=== PATIENT | male | born 1950 | race Caucasian/White ===

== ENCOUNTER 2023-03-19 10:05 | Outpatient (RCR) | payer OTHER, SELFPAY | END 2023-03-19 23:59 | disposition home or self-care (01) | LOC: RPT 10:05 | PROVIDERS: ATTENDING PHYSICIAN Physician Assistant Surgical; PRIMARYCARE PHYSICIAN Family Medicine | DX: M76.31 Iliotibial band syndrome, right leg (principal); S86.892D Other injury of other muscle(s) and tendon(s) at lower leg level, left leg, subsequent encounter; S86.891D Other injury of other muscle(s) and tendon(s) at lower leg level, right leg, subsequent encounter; Z73.6 Limitation of activities due to disability | CPT/HCPCS: 97110 ==

== ENCOUNTER 2023-05-15 10:49 | Outpatient (RCR) | payer OTHER, SELFPAY | END 2023-05-15 23:59 | disposition home or self-care (01) | LOC: RPT 10:49 | PROVIDERS: ATTENDING PHYSICIAN Physician Assistant Surgical; PRIMARYCARE PHYSICIAN Family Medicine | DX: M76.31 Iliotibial band syndrome, right leg (principal); S86.892D Other injury of other muscle(s) and tendon(s) at lower leg level, left leg, subsequent encounter; S86.891D Other injury of other muscle(s) and tendon(s) at lower leg level, right leg, subsequent encounter; Z73.6 Limitation of activities due to disability; X58.XXXD Exposure to other specified factors, subsequent encounter | CPT/HCPCS: 97010; 97110 ==

== ENCOUNTER → 2023-06-22 18:51 | Outpatient (REF) | payer OTHER, SELFPAY | LOC: MRI 3T 18:51 | PROVIDERS: ATTENDING PHYSICIAN Specialist; FAMILY PHYSICIAN Family Medicine | DX: M54.16 Radiculopathy, lumbar region (principal); M25.811 Other specified joint disorders, right shoulder | CPT/HCPCS: 72148; 73221 ==

== ENCOUNTER 2023-08-14 10:46 | Outpatient (RCR) | payer OTHER, SELFPAY | END 2023-08-14 23:59 | disposition home or self-care (01) | LOC: RPT 10:46 | PROVIDERS: ATTENDING PHYSICIAN Physical Medicine & Rehabilitation; FAMILY PHYSICIAN Family Medicine | DX: S46.011D Strain of muscle(s) and tendon(s) of the rotator cuff of right shoulder, subsequent encounter (principal); M43.17 Spondylolisthesis, lumbosacral region; M76.891 Other specified enthesopathies of right lower limb, excluding foot; M70.51 Other bursitis of knee, right knee; Z73.6 Limitation of activities due to disability | CPT/HCPCS: 97010; 97110; 97163 ==

== ENCOUNTER → 2023-08-31 10:33 | Outpatient (REF) | payer OTHER, SELFPAY | LOC: RAD 10:33 | PROVIDERS: ATTENDING PHYSICIAN Physician Assistant; FAMILY PHYSICIAN Family Medicine | DX: R07.81 Pleurodynia (principal) | CPT/HCPCS: 71111 ==

== ENCOUNTER 2023-09-13 09:48 | Outpatient (RCR) | payer OTHER, SELFPAY | END 2023-09-13 23:59 | disposition home or self-care (01) | LOC: RPT 09:48 | PROVIDERS: ATTENDING PHYSICIAN Physical Medicine & Rehabilitation; FAMILY PHYSICIAN Family Medicine | DX: M25.511 Pain in right shoulder (principal); R26.2 Difficulty in walking, not elsewhere classified; M43.17 Spondylolisthesis, lumbosacral region; M76.891 Other specified enthesopathies of right lower limb, excluding foot; Z91.81 History of falling | CPT/HCPCS: 97010; 97110 ==

== ENCOUNTER 2023-09-20 09:54 | Outpatient (RCR) | payer OTHER, SELFPAY | END 2023-09-21 07:33 | disposition home or self-care (01) | LOC: RPT 09:54 | PROVIDERS: ATTENDING PHYSICIAN Physical Medicine & Rehabilitation; FAMILY PHYSICIAN Family Medicine | DX: M25.511 Pain in right shoulder (principal); S46.011D Strain of muscle(s) and tendon(s) of the rotator cuff of right shoulder, subsequent encounter; M43.17 Spondylolisthesis, lumbosacral region; Z73.6 Limitation of activities due to disability; M70.50 Other bursitis of knee, unspecified knee | CPT/HCPCS: 97010; 97110 ==

== ENCOUNTER 2023-10-10 13:14 | Inpatient (IN) | payer OTHER, SELFPAY ==
[2023-09-25 08:46] VITALS: BMI 30.4
[2023-09-25 10:09] LABS: Hematocrit 43.5 % (39.0-52.0); Hemoglobin 15.1 g/dL (13.0-18.0); Mean Corp Hgb Conc. 34.7 g/dL (33.0-37.0); Mean Corpuscular Hgb 29.3 pg (27.0-31.0); Mean Corpuscular Volume 84.5 fL (80.0-94.0); Mean Platelet Volume 10.2 fL (7.4-10.4); Platelet Count 270 10^3/uL (130-400); Red Blood Cell Count 5.15 10^6/uL (4.70-6.10)
[2023-09-25 10:47] LABS: Blood Urea Nitrogen 19 mg/dl (9-20); Calcium 9.7 mg/dl (8.4-10.2); Carbon Dioxide 28 mmol/L (22-30); Chloride 104 mmol/L (98-107); Estimated Creatinine Clearance 93 ml/min; Glucose 89 mg/dl (70-99); Potassium 4.6 mmol/L (3.5-5.1); Sodium 140 mmol/L (135-145); eGFR > 60.00
--- NOTE | 2023-10-05 12:24 | CM ---
Patient is scheduled for left foot surgery with Dr. Hinojosa on 10/08/23. Spoke with patient prior to surgery via telephone. Patient had a L TKR in 2021 and R TKR at 2019 at . Reintroduced role of Orthopedic Navigator. Patient reports that he lives
alone in a two story home. There are two steps to enter and a flight of steps to the second floor. There is a powder room on the entry level programmer. 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 He uses a cane and also has a rolling walker. He
had VN services through [facility]N after his prior TKRs. PCP is Dr. Reza Grant.
Discussed post surgical plans. Dr. Hinojosa would like patient to have home RN for wound checks. Patient would want [facility] RN at home as he has had in past. [facility] liaison, Treva Conde updated on need for home care. Plan is for patient to stay
one night at after surgery.
Plan: Orthopedic Navigator will remain available to assist with the care of patient and will reassess discharge needs after surgery.
--- NOTE | 2023-10-05 14:31 | VNURNOTE ---
Home Health Liaison spoke with patient at 1400 to discuss [facility] nurse/therapy, visits, schedule and homebound status. Patient is agreeable and understands that visits at home will be 2-3 x per week to assess and teach medical management.
Patient is aware that [facility] will contact them for start of care in 1-2 days after discharge from .
[facility] referral completed in 'saved' mode in [facility] until closer to discharge.
[2023-10-08] VITALS (11 sets, daily range): BP systolic 111–139; BP diastolic 72–83; BMI 30.4
[2023-10-08] MEDS: TYLENOL 1000 MG PO (09:48)
[2023-10-08] MEDS: CELEBREX 200 MG PO (09:49)
[2023-10-08] MEDS: VANCOCIN 300 MG IV (10:03)
[2023-10-08] MEDS: VANCOCIN 300 ML IV (10:03)
[2023-10-08] MEDS: NORMOSOL-R 1000 IV ×2 (10:04→15:36)
--- NOTE | 2023-10-08 14:57 | HPS.HSE ---
Family Physician
-
Family Physician: Reza Grant
Chief Complaint
-
Elective left foot surgery
History of Present Illness
73-year-old male with a past medical history of gastroesophageal reflux disease and allergic rhinitis, who had left foot MTPJ fusion and second hammertoe correction by Dr. Hinojosa 10/07, is requiring observation in hospital due to necessity of
requiring IV vancomycin for infection prevention. Patient has a history of right shoulder osteomyelitis and therefore podiatry recommended observation for 2 doses of IV vancomycin. He is seen in the PACU. He denies chest pain, shortness of
breath, or palpitations. No lightheadedness, no dizziness. No nausea, no vomiting. No fever.
Medical History
Past Medical History
Past Medical History: Reports Other
Additional Past Medical History:
Gastroesophageal reflux disease
Allergic rhinitis
Prepatellar rupture with surgical repair
Right biceps tendon rupture with surgical repair
Right shoulder osteomyelitis
Past Surgical History: Reports Other
Additional Past Surgical History:
Left foot and MTPJ fusion and second hammertoe correction
Prepatellar rupture with surgical repair
Right biceps tendon rupture with surgical repair
Tonsillectomy
Bilateral carpal tunnel release
Right total knee arthroplasty
Right hand trigger finger release
Social History
Tobacco: Non-smoker
Alcohol: None
Drug: None
Family History
Family History: Not pertinent
Allergies / Home Medications
Allergies reflects when Allergies were last updated in [facility].
Home Medications with original date entered in [facility]
Allergy/Medication List:
Allergies
Allergy/AdvReac Type Severity Reaction Status Date / Time
adhesive tape Allergy Rash, Verified 10/08/23 09:37
itching,
blisters
ceftriaxone [From Rocephin] Allergy Rash Verified 10/08/23 09:37
latex Allergy Rash Verified 10/08/23 09:37
nut - unspecified Allergy Anaphylaxis Verified 10/08/23 09:37
Penicillins Allergy Rash - Verified 10/08/23 09:37
tested
positive
on skin
test
pollen extracts Allergy Hayfever Verified 10/08/23 09:37
shellfish derived Allergy Vomiting Verified 10/08/23 09:37
Raw Fruit, Nuts Allergy Anaphylaxis Uncoded 10/08/23 09:37
Home Medications Table - record
�Medication �Instructions �Recorded �Confirmed
ascorbic acid (vitamin C) 1,000 mg 1,000 mg PO BID Supplement 09/19/18 10/08/23
tablet (Vitamin C)
qbswzhgsieie-jqz-unizi acid-vit 1 ea PO DAILY Supplement 09/19/18 10/08/23
K-lycop 400 mcg-20 mcg-370 mcg
tablet (Men's 50 Plus Multivitamin)
loratadine 10 mg tablet 10 mg PO DAILY Allergies 09/01/21 10/08/23
acetaminophen 500 mg tablet 500 mg PO Q6H PRN pain ##0 10/04/21 10/08/23
(Tylenol Extra Strength)
famotidine 20 mg tablet 20 mg PO HS #30 tabs 10/04/21 10/08/23
saw palm 160 mg-vit E 100 1 ea PO DAILY prostate ##0 10/04/21 10/08/23
unit-selen 100
wvx-gjvz-ljvewh-pygeum tablet
(Prostate Health)
vitamin E (dl, acetate) 180 mg 1 cap PO DAILY Supplement ##0 10/04/21 10/08/23
(400 unit) capsule
latanoprost 0.005 % eye drops 1 drp ophthalmic (eye) HS 10/03/23 10/08/23
omeprazole 20 mg capsule,delayed 20 mg PO DAILY 10/08/23 10/08/23
release
Review of Systems
-
A 12 point ROS was completed and negative except as noted: Yes
Physical Exam
Vital Signs
Vital Signs
Temp Pulse Resp BP Pulse Ox
96.3 F L 74 16 139/83 96
10/08/23 14:35 10/08/23 09:41 10/08/23 09:41 10/08/23 09:41 10/08/23 09:41
Physical Exam
General: Well Developed, Well Nourished, No Apparent Distress and Comfortable
HEENT: NormoCephalic, Anicteric, Moist mucous membranes and Atraumatic
Respiratory: Clear
Cardiac: S1/S2 and Regular Rhythm
GI: Soft, Non Tender, Non Distended and Normal Bowel Sounds
Musculoskeletal: No Clubbing, No Cyanosis and No Edema
Skin: Other (Left foot dressed)
Neuro: Awake, Alert and Oriented
Psych: Calm
Laboratory Results
-
09/25/23 08:41
09/25/23 08:41
Impression/Plan
-
HPI: 73-year-old male with a past medical history of gastroesophageal reflux disease and allergic rhinitis, who had left foot MTPJ fusion and second hammertoe correction by Dr. Hinojosa 10/07, is requiring observation in hospital due to necessity of
requiring IV vancomycin for infection prevention. Patient has a history of right shoulder osteomyelitis and therefore podiatry recommended observation for 2 doses of IV vancomycin. He is seen in the PACU. He denies chest pain, shortness of
breath, or palpitations. No lightheadedness, no dizziness. No nausea, no vomiting. No fever.
#Left foot fusion and second hammertoe correction by Dr. Hinojosa 10/07
For IV vancomycin postoperatively
Nonweightbearing left lower extremity
Pain control, bowel regimen, PT/OT, plan of care as per podiatry
Discharge when cleared by primary
#Gastroesophageal reflux disease
Continue PPI
#Allergic rhinitis
Continue antihistamine
DVT prophylaxis�aspirin 325 mg p.o. daily as per primary
Full code
Total time spent to see the patient on the floor, examine the patient, review data and lab results, discuss treatment plan with patient, nursing staff around 56 minutes.
--- NOTE | 2023-10-08 16:43 | PTCARENOTE ---
Patient admitted from pacu post left foot great toe fusion and arthrodesis hammer toe correction.The patient denies any pain.The dressing on the left foot is intact without drainage. Neurovascular assessment is within normal limits and ongoing.The
patient is in his bed with the call ramos in reach.
[2023-10-08] MEDS: MIRALAX 17 GRAMS PO (20:28)
[2023-10-08] MEDS: COLACE 100 MG PO (20:28)
[2023-10-08] MEDS: VITAMIN C 1000 MG PO (20:28)
[2023-10-08] MEDS: XALATAN OPHTHALMIC SOLUTION 1 DROP RIGHT EYE (20:29)
[2023-10-08] MEDS: NEURONTIN 300 MG PO (20:31)
[2023-10-08] MEDS: NEURONTIN PO (20:44)
[2023-10-08] MEDS: VANCOCIN 200 IV (22:20)
[2023-10-08] MEDS: PEPCID 20 MG PO (22:26)
[2023-10-09] MEDS: NORMOSOL-R 1000 IV (02:37)
--- NOTE | 2023-10-09 06:13 | W.PN.HOSP.TC ---
Today's Communication/Plan
-
pain control
PT/OT
observe, possible discharge home with home rehab tomorrow if patient improves
Assessment / Plan
Assessment / Plan
Physical Exam
General: Well Developed, Well Nourished, No Apparent Distress and Comfortable
HEENT: NormoCephalic, Anicteric, Moist mucous membranes and Atraumatic
Respiratory: Clear
Cardiac: S1/S2 and Regular Rhythm
GI: Soft, Non Tender, Non Distended and Normal Bowel Sounds
Musculoskeletal: No Clubbing, No Cyanosis and No Edema
Skin: Left foot dressing clean dry intact
Neuro: Awake, Alert and Oriented
Psych: Calm
HPI: 73-year-old male with a past medical history of gastroesophageal reflux disease and allergic rhinitis, who had left foot MTPJ fusion and second hammertoe correction by Dr. Hinojosa 10/07, is requiring observation in hospital due to necessity of
requiring IV vancomycin for infection prevention. Patient has a history of right shoulder osteomyelitis and therefore podiatry recommended observation for 2 doses of IV vancomycin. He is seen in the PACU. He denies chest pain, shortness of
breath, or palpitations. No lightheadedness, no dizziness. No nausea, no vomiting. No fever.
#Left foot fusion and second hammertoe correction by Dr. Hinojosa 10/07
postoperative IV vancomycin completed
Nonweightbearing left lower extremity
Pain control, bowel regimen, PT/OT, plan of care as per podiatry
#Gastroesophageal reflux disease
Continue PPI
#Allergic rhinitis
Continue antihistamine
PT/OT appreciated SNF rehab vs
DVT prophylaxis�aspirin 325 mg p.o. daily as per podiatry
Full code
Total time spent to see the patient on the floor, examine the patient, review data and lab results, discuss treatment plan with patient, nursing staff around 56 minutes.
Anticipated Discharge: Within 24 hours
Subjective/Interval History
-
Date of Service: October 09, 2023
Significant pain requiring IV pain meds. Unsteady gait patient unsure if he will be able to manage at home even with family assist and home services
Objective Data
-
Labs:
Laboratory Results
10/09/23
05:33
WBC Pending
Hgb Pending
Hct Pending
Plt Count Pending
Sodium Pending
Potassium Pending
Chloride Pending
Carbon Dioxide Pending
BUN Pending
Creatinine Pending
Glucose Pending
Calcium Pending
Total Bilirubin Pending
AST Pending
ALT Pending
Alkaline Phosphatase Pending
Vital Signs:
Vital Signs
Temp Pulse Resp BP Pulse Ox
98.3 F 64 16 135/80 97
10/08/23 22:53 10/08/23 22:53 10/08/23 22:53 10/08/23 22:53 10/08/23 22:53
I&O
10/07/23 10/08/23 10/09/23
06:59 06:59 06:59
Intake Total 1318 / 1318
Output Total 2034
Balance -717 / -717
[2023-10-09 07:01] VITALS: BP 144/79
--- NOTE | 2023-10-09 07:09 | W.PN.UPDATE ---
Update Note
Progress Note Update
Mr. Aguero is resting comfortably in bed this morning. He dose report pain to the foot. He has been out of bed to the chair but has not yet worked with PT.
Directed exam of LLE reveals dressings to left foot that are clean, dry, and intact. Able to plantarflex/dorsiflex the ankle, wiggles all toes. Sensation intact to light touch. cap refill <2secs
73M POD#1 Left 1st metatarsophalangeal joint arthrodesis plate and screw fixation, left 2nd hammertoe, left foot extensor tendon lengthenings, 1st and 2nd ray and permanent nail avulsion, medial nail fold.
-NWB LLE
-PT/OT
-pain control as needed
-postop abx
-stable for discharge when cleared by PT
-Follow up outpatient in 2 weeks
[2023-10-09 07:30] LABS: Hemoglobin 14.3 g/dL (13.0-18.0); Mean Corpuscular Hgb 29.5 pg (27.0-31.0); Mean Corpuscular Volume 86.6 fL (80.0-94.0); Mean Platelet Volume 10.3 fL (7.4-10.4); Platelet Count 251 10^3/uL (130-400); Red Blood Cell Count 4.85 10^6/uL (4.70-6.10); Red Cell Dist. Width 13.1 % (11.5-14.5); White Blood Cell Count 7.6 10^3/uL (4.8-10.8)
[2023-10-09 07:55] LABS: ALT (SGPT) 19 U/L (0-50); AST (SGOT) 31 U/L (17-59); Alkaline Phosphatase 74 U/L (38-126); Blood Urea Nitrogen 14 mg/dl (9-20); Calcium 9.1 mg/dl (8.4-10.2); Carbon Dioxide 29 mmol/L (22-30); Chloride 104 mmol/L (98-107); Estimated Creatinine Clearance 106 ml/min; Glucose 93 mg/dl (70-99); Potassium 4.4 mmol/L (3.5-5.1); Sodium 140 mmol/L (135-145); Total Bilirubin 0.8 mg/dl (0.2-1.3); Total Protein 6.6 g/dl (6.3-8.2); eGFR > 60.00
[2023-10-09] MEDS: DILAUDID 2 MG PO ×2 (08:37→12:57)
[2023-10-09] MEDS: VITAMIN C 1000 MG PO ×2 (09:23→20:07)
[2023-10-09] MEDS: PROTONIX 40 MG PO (09:23)
[2023-10-09] MEDS: NEURONTIN 300 MG PO ×3 (09:23→21:23)
[2023-10-09] MEDS: ASPIRIN ENTERIC COATED 325 MG PO (09:23)
[2023-10-09] MEDS: COLACE 100 MG PO ×2 (09:24→20:07)
[2023-10-09] MEDS: CLARITIN 10 MG PO (09:24)
[2023-10-09] MEDS: MIRALAX 17 GRAMS PO (09:25)
[2023-10-09] MEDS: VANCOCIN 200 IV (09:47)
--- NOTE | 2023-10-09 10:55 | CM ---
Addendum entered by Aaliyah Armas 10/09/23 14:41:
Per PT, Rehab vs. Home; difficulty w/ weight bearing; patient wants to go home
Plan: Per Attending, pending need for pain management, patient will discharge to Home tomorrow w/ Home Health services from [facility] ([facility], PT)
Addendum entered by Aaliyah Armas 10/09/23 11:47:
Plan: discharge to home with home health services from [facility]
Original Note:
Met with patient at beside
IMM benefit explained; form signed
Outpatient Observation Status Notice explained; form signed @ 1059
Plan: Stable for discharge pending PT evaluation
[2023-10-09 11:21] VITALS: BP 119/71
--- NOTE | 2023-10-09 12:34 | VNURNOTE ---
[facility] referral completed in [facility] after review of chart and discussion with patient.
[2023-10-09 12:39] VITALS: BP 131/74; PULSE 75
[2023-10-09] MEDS: NORMOSOL-R IV (12:50)
[2023-10-09 13:08] VITALS: BP 131/74; PULSE 75; O2SAT 97
[2023-10-09 15:30] VITALS: BP 127/74
[2023-10-09] MEDS: XALATAN OPHTHALMIC SOLUTION 1 DROP RIGHT EYE (20:07)
[2023-10-09] MEDS: PEPCID 20 MG PO (21:23)
[2023-10-09] MEDS: MOTRIN 600 MG PO (22:17)
[2023-10-09 23:41] VITALS: BP 130/75
[2023-10-10] MEDS: DILAUDID 2 MG PO (01:39)
--- NOTE | 2023-10-10 07:26 | W.PN.HOSP.TC ---
Today's Communication/Plan
-
discharge
Assessment / Plan
Assessment / Plan
Physical Exam
General: Well Developed, Well Nourished, No Apparent Distress and Comfortable
HEENT: NormoCephalic, Anicteric, Moist mucous membranes and Atraumatic
Respiratory: Clear
Cardiac: S1/S2 and Regular Rhythm
GI: Soft, Non Tender, Non Distended and Normal Bowel Sounds
Musculoskeletal: No Clubbing, No Cyanosis and No Edema
Skin: Left foot dressing clean dry intact
Neuro: Awake, Alert and Oriented
Psych: Calm
HPI: 73-year-old male with a past medical history of gastroesophageal reflux disease and allergic rhinitis, who had left foot MTPJ fusion and second hammertoe correction by Dr. Hinojosa 10/07, is requiring observation in hospital due to necessity of
requiring IV vancomycin for infection prevention. Patient has a history of right shoulder osteomyelitis and therefore podiatry recommended observation for 2 doses of IV vancomycin. He is seen in the PACU. He denies chest pain, shortness of
breath, or palpitations. No lightheadedness, no dizziness. No nausea, no vomiting. No fever.
#Left foot fusion and second hammertoe correction by Dr. Hinojosa 10/07
postoperative IV vancomycin completed
Nonweightbearing left lower extremity
Pain control, bowel regimen
PT/OT appreciated rehab vs home health (patient prefers home health)
#Gastroesophageal reflux disease
Continue PPI
#Allergic rhinitis
Continue antihistamine
DVT prophylaxis�aspirin 325 mg p.o. daily as per podiatry
Full code
Medically stable for discharge home with home health and outpatient follow up recommendations.
Total Time Preparing Discharge ___50____ minutes including examination of the patient, summary of the hospital stay, instructions for continuing care to all relevant caregivers; and preparation of discharge records, prescriptions, and referral
forms if necessary.
Anticipated Discharge: Today
Subjective/Interval History
-
Date of Service: October 10, 2023
Seen and examined at bedside in no acute distress. Reports feeling well. Pain control improved. Denies new acute issues. Eager to go home.
Objective Data
-
Vital Signs:
Vital Signs
Temp Pulse Resp BP Pulse Ox
98.7 F 70 16 130/75 97
10/09/23 23:41 10/09/23 23:41 10/09/23 23:41 10/09/23 23:41 10/09/23 23:41
I&O
10/09/23 10/10/23 10/11/23
06:59 06:59 06:59
Intake Total 2958 / 2958 1919
Output Total 2034 / 2034 2375 / 237
Balance 923 / 923 -455 / -455
[2023-10-10 07:30] VITALS: BP 115/76
--- NOTE | 2023-10-10 07:36 | W.PN.UPDATE ---
Update Note
Progress Note Update
Mr. Aguero is POD2 Left 1st metatarsophalangeal joint arthrodesis plate and screw fixation, left 2nd hammertoe, left foot extensor tendon lengthenings, 1st and 2nd ray and permanent nail avulsion, medial nail fold performed by Dr. Hinojosa. He is
resting comfortably in bed this morning, and reports his pain is much improved this morning. He was able to work with physical therapy yesterday without significant difficulty.
Directed exam of LLE reveals dressings to left foot that are clean, dry, and intact. Expected post-operative edema throughout the left foot. Able to plantarflex/dorsiflex the ankle, wiggles all toes. Sensation intact to light touch. Cap refill
<2secs.
73M POD2 following the above procedure under the direction of Dr. Hinojosa
--Strict NWB to left lower extremity. We appreciate the assistance of PT/OT.
--Continue pain control as needed. Ice and elevation for pain and edema control.
--Postop antibiotics.
--Stable for discharge when cleared by PT.
--Maintain surgical splint until post-operative visit. Follow up outpatient in 2 weeks.
[2023-10-10] MEDS: COLACE 100 MG PO (09:16)
[2023-10-10] MEDS: VITAMIN C 1000 MG PO (09:16)
[2023-10-10] MEDS: PROTONIX 40 MG PO (09:16)
[2023-10-10] MEDS: NEURONTIN 300 MG PO (09:16)
[2023-10-10] MEDS: ASPIRIN ENTERIC COATED 325 MG PO (09:16)
[2023-10-10] MEDS: MIRALAX 17 GRAMS PO (09:16)
[2023-10-10] MEDS: TYLENOL 1000 MG PO (09:26)
[2023-10-10] MEDS: CLARITIN 10 MG PO (10:38)
[2023-10-10] MEDS: ROXICODONE 5 MG PO (10:38)
[2023-10-10 11:48] VITALS: BP 130/80; PULSE 60; O2SAT 99
[2023-10-10 12:14] VITALS: BP 130/80; PULSE 60; O2SAT 99
--- NOTE | 2023-10-10 12:48 | CM ---
Patient has been medically cleared for discharge to home with [facility], PT/OT services. Patient has transitioned to inpatient and signed IMM. will transport home.
--- NOTE | 2023-10-10 13:46 | W.DCSUMMARY ---
Discharge Summary
Discharge Data
Date of Admission: 10/10/23
Date of Discharge: 10/10/23
-
Pending Results: No
Discharge Plan
-
Patient Disposition: Home with Home Care
Discharge Diagnosis/Procedures: Left foot fusion and second hammertoe correction by Dr. Hinojosa 10/07
Gastroesophageal reflux disease
Allergic rhinitis
Condition: Fair
Diet: Regular
Activity: Do not bear weight L leg and With Walker
Driving Restrictions: Not until seen by your Dr
Bathing Restrictions: keep dressing area dry
Other Services: [facility], PT and OT
Activity Restrictions/Additional Instructions:
Please follow up with primary care provider in 1 week of discharge and Podiatry in 2 weeks of discharge.
Aspirin has been prescribed for dvt prophylaxis after recent surgical podiatry procedure. Please follow up with podiatry for further dosing recommendations before completing.
Gabapentin has been prescribed for pain as per podiatry recommendations.
Ibuprofen has been prescribed as needed for moderate pain.
Oxycodone has been prescribed as needed for severe pain.
Please take medications as prescribed/recommended and follow up with primary care provider, podiatry, and/or other healthcare provider involved in your care for refills and/or further adjustment to your medication regimen as necessary.
Referrals:
Reza Grant MD [Family Provider] - in one week
Lenard Hinojosa DPM [Active] - in two weeks
Prescriptions:
New
aspirin 325 mg Tablet,Delayed Release (/Ec)
325 mg PO DAILY 14 Days Qty: 14 0RF
Rx Instructions:
Follow up with Podiatry for further DVT prophylaxis dosing recommendations before completing
gabapentin 300 mg Capsule
300 mg PO TID 14 Days Qty: 42 0RF
ibuprofen 600 mg Tablet
600 mg PO Q6HPRN PRN (Reason: pain and swelling) 7 Days Qty: 28 0RF
oxycodone 5 mg Tablet
5 mg PO Q8HPRN PRN (Reason: severe pain) 7 Days Qty: 21 0RF
Continued
ascorbic acid (vitamin C) [Vitamin C] 1,000 MG tablet
1,000 mg PO BID
Men's 50 Plus Multivitamin 1 EACH tablet
1 ea PO DAILY
loratadine 10 MG tablet
10 mg PO DAILY
vitamin E (dl, acetate) 400 UNITS capsule
1 cap PO DAILY Qty: 0 0RF
Rx Instructions:
resume in 7 days
Prostate Health 1 EACH tablet
1 ea PO DAILY Qty: 0 0RF
Rx Instructions:
resume in 7 days
famotidine 20 MG tablet
20 mg PO HS Qty: 30 0RF
latanoprost 0.005 % Drops
1 drp OPHTHALMIC (EYE) HS
Rx Instructions:
RIGHT EYE
omeprazole 20 mg Capsule,Delayed Release(Dr/Ec)
20 mg PO DAILY
acetaminophen [Tylenol Extra Strength] 500 MG tablet
500 mg PO Q6H PRN (Reason: pain) Qty: 0 0RF
Rx Instructions:
500mg only if taking Hydrocodone
Discharge Orders:
Discharge Patient (As Directed); Ordered 10/10/23
Ordered By: Kait Ca
Discharge Date and Time
Print Language: NEPALI
[2023-10-10 14:15] VITALS: BP 118/57
== END 2023-10-10 14:42 | disposition home health service (06) | DRG 941 ==
LOC: 2 SOUTH 13:14
PROVIDERS: Family Medicine; ADMITTING PHYSICIAN Internal Medicine; FAMILY PHYSICIAN Family Medicine; OTHER PHYSICIAN Student in an Organized Health Care Education/Training Program
PROC: 0SG Lower Joints, Fusion (ICD-10-PCS; 2023-10-10)
PROC: 0HDRXZZ Extraction of Toe Nail, External Approach (ICD-10-PCS; 2023-10-10)
PROC: 0SGQ04Z Fusion of Left Toe Phalangeal Joint with Internal Fixation Device, Open Approach (ICD-10-PCS; 2023-10-10)
DX: G89.18 Other acute postprocedural pain (principal); M20.22 Hallux rigidus, left foot; L60.0 Ingrowing nail; M20.42 Other hammer toe(s) (acquired), left foot; M13.872 Other specified arthritis, left ankle and foot; K21.9 Gastro-esophageal reflux disease without esophagitis; J30.1 Allergic rhinitis due to pollen; Z79.899 Other long term (current) drug therapy
CPT/HCPCS: 28750; 28285; 28308; 11730; 36415; 80048; 80053; 83735; 85027; 93005; 97116; 97163; 97167; 97535

== ENCOUNTER → 2024-01-21 11:45 | Outpatient (REF) | payer OTHER, SELFPAY ==
[2024-01-21 12:27] LABS: Troponin I < 0.012 ng/ml
== END ==
LOC: RAD 11:45
PROVIDERS: ATTENDING PHYSICIAN Nurse Practitioner Family
DX: R12 Heartburn (principal)
CPT/HCPCS: 36415; 84484; 93005

== ENCOUNTER 2024-04-23 19:46 | Emergency (ER) | payer OTHER, SELFPAY ==
[2024-04-23 19:46] VITALS: BMI 30.1
[2024-04-23 19:49] VITALS: BP 126/83
[2024-04-23 20:05] LABS: % Basophils 0.2 % (0-2); % Eosinophils 2.7 % (0-6); % Immature Granulocytes 0.2 % (0-0.5); % Lymphocytes 27.5 % (20.5-51.1); % Monocytes 8.4 % (1.7-9.3); Absolute Eosinophils 0.2 10^3/uL (0-0.7); Absolute Lymphocytes 1.8 10^3/uL (1.2-3.4); Absolute Monocytes 0.6 10^3/uL (0.1-0.6); Hematocrit 42.2 % (39.0-52.0); Hemoglobin 14.6 g/dL (13.0-18.0); Mean Corp Hgb Conc. 34.6 g/dL (33.0-37.0); Mean Corpuscular Hgb 28.2 pg (27.0-31.0); Mean Corpuscular Volume 81.5 fL (80.0-94.0); Mean Platelet Volume 9.5 fL (7.4-10.4); Nucleated Red Blood Cells % 0 % (-); Platelet Count 342 10^3/uL (130-400); Red Blood Cell Count 5.18 10^6/uL (4.70-6.10); Red Cell Dist. Width 13.1 % (11.5-14.5); White Blood Cell Count 6.6 10^3/uL (4.8-10.8)
[2024-04-23 20:15] LABS: ALT (SGPT) 23 U/L (0-50); AST (SGOT) 30 U/L (17-59); Albumin 4.2 g/dl (3.5-5.0); Alkaline Phosphatase 94 U/L (38-126); Blood Urea Nitrogen 25 mg/dl (9-20); Calcium 9.2 mg/dl (8.4-10.2); Carbon Dioxide 26 mmol/L (22-30); Chloride 101 mmol/L (98-107); Glucose 127 mg/dl (70-99); Lipase 146 U/L (23-300); Potassium 3.9 mmol/L (3.5-5.1); Sodium 136 mmol/L (135-145); Total Bilirubin 0.4 mg/dl (0.2-1.3); eGFR > 60.00
[2024-04-23 22:00] VITALS: BP 128/75
--- NOTE | 2024-04-23 22:54 | ED.GENMED ---
History of Present Illness
General
Chief Complaint: Abdominal Pain
Source: patient and previous hospital records (Hospitalization September 2023 for postop pain control and IV antibiotics for infection prevention after left hammertoe surgery.)
Exam Limitations: none
Time Seen by Provider: 04/23/24 22:20
Nursing documentation reviewed up to this point in time: agreed with
History of Present Illness
History of Present Illness:
This is a 74-year-old gentleman with history of hiatal hernia/GERD, allergic rhinitis who complains of intermittent right lower quadrant pain that began several weeks ago, perhaps longer but notes much more persistent, worsening pain since this
weekend and pain is much worse with getting on and off his tractor, shoveling/plowing snow excetra.
Right lower quadrant pain became much more severe tonight without insightful injury prompting ED visit.
He has been taking Tylenol sporadically with mild improvement in pain.
He denies fever nor chills, no nausea no vomiting, no diarrhea nor constipation. Pain is much worse with movement especially with lifting his right leg to get into and out of his vehicle. It improves with sitting or lying still.
He denies dysuria nor urgency nor hematuria, denies back nor flank pain. No weakness nor numbness.
Past History
Past History
ED Past Medical History: GERD
ED Past Surgical History: Orthopedic (Right total knee replacement; bilateral carpal tunnel release, left bicep repair, left hammertoe correction September 2023)
Social History
Tobacco: Non-smoker
Alcohol: None
Drug: None
Personal: Partner
Living: with family
Employment: Retired
Family History
Family History: Other (Noncontributory)
Phy Exam
Physical Exam
Physical Exam:
GENERAL: 74-year-old gentleman appears his stated age, awake and alert, pleasant, appears in no acute distress. Vital signs within normal limits.
EYE: anicteric
NECK: Supple, nontender, no meningismus, no significant adenopathy.
ENT: oral mucosa is moist. No rhinorrhea.
CARDIAC: Regular rate and rhythm. no murmur.
LUNGS: Clear breath sounds bilaterally, no acute respiratory distress, no wheezes/rales/rhonchi
ABDOMEN: Soft, nondistended, moderate tenderness to palpation right distal lower quadrant, right inguinal region without palpable mass nor adenopathy, no r/g, no cvat. normoactive BS.
BACK: No midline bony tenderness. No CVA tenderness. Straight leg raising is negative bilaterally.
NEUROLOGICAL: Alert and oriented x3, no focal neuro deficits. Gait is steady.
SKIN: Warm and dry, normal color, skin intact. No rash.
MUSCULOSKELETAL: No C/C/E. peripheral pulses are full and equal b/l. No palpable tenderness.
PSYCH: Normal and appropriate interaction.
Course
Orders/Labs/Results
Orders:
Orders
04/23/24 19:55
Complete Blood Count/With Diff Urgent
Comprehensive Metabolic Panel Urgent
Lipase Urgent
04/23/24 22:32
Ketorolac [Toradol] 30 mg IV NOW STA
04/23/24 22:33
CT Abd/pelvis W Iv Cont Urgent
Comment:
Reason For Exam: severe RLQ pain
Urinalysis Reflex To Culture Urgent
Abnormal Lab Results
04/23/24
19:55
BUN 25 H mg/dl
(9-20)
Glucose 127 H mg/dl
(70-99)
04/23/24 19:55
04/23/24 19:55
Vital Signs
Initial and Last Documented VS:
Initial Vital Signs
Temp Pulse Resp BP Pulse Ox
98.1 F 82 20 126/83 99
04/23/24 19:49 04/23/24 19:49 04/23/24 19:49 04/23/24 19:49 04/23/24 19:49
Last Documented Vital Signs
Temp Pulse Resp BP Pulse Ox
98.1 F 81 12 128/75 99
04/23/24 19:49 04/23/24 23:30 04/23/24 23:30 04/23/24 22:00 04/23/24 19:49
MDM/Problems Addressed
Differential Diagnosis Includes:
Concern for inguinal strain, right lower quadrant abdominal wall muscle strain, other consideration is occult inguinal hernia, sports hernia. As symptoms have been ongoing for the past week perhaps longer appendicitis, diverticulitis are much less
likely.
Pain is clearly reproducible with palpation and more consistent with musculoskeletal pain, renal colic/ureteric stone/UTI are less likely.
Labs are reassuringly normal.
Will medicate for pain with Toradol and will check CT abdomen pelvis.
Will check urinalysis.
*Radiology
Radiology exam reviewed: radiology read reviewed
*Pulse Oximetry
Patient hypoxic: no
*Critical Care Note
Total Time (30-74mins, 75-104mins- exclusive of procedures): Not Applicable
Update Note
Update Note:
00:45
CAT scan shows moderate size hiatal hernia containing stomach.
Moderate stool burden with diverticulosis but no acute inflammation, no evidence of diverticulitis. Right colon is particularly distended with stool. There is a fat-containing right inguinal hernia. No definite acute findings.
Patient feeling improved after IV dose of Toradol. Resting comfortably.
I suspect an element of inguinal strain. Small fat-containing inguinal hernia is likely incidental finding.
Previous CAT scans have also shown similar constipation. Patient chronically maintained on MiraLAX. Recommend he continue MiraLAX and add a stool softener such as Colace on a daily basis.
He is chronically maintained on famotidine as well as omeprazole. GERD symptoms are well-controlled.
Recommend he continue Tylenol as needed for pain and will add a short course of meloxicam. Other than meloxicam recommend he avoid other NSAIDs.
Prompt follow-up with PCP. Patient has an appointment scheduled for April 25.
ED Attending Note
-
Portions of this chart may have been created with voice recognition software.� Occasional wrong word or��sound alike� substitutions may have occurred due to the inherent limitations of voice recognition software.
Discharge Plan
Departure
Patient Disposition: Home (Routine Discharge)
Date of Disposition: 04/24/24
Time of Disposition: 00:50
Patient with high blood pressure during this ER visit?: No
Condition: Good
Discharge Problem:
acute on chronic RLQ abdominal pain, Inguinal hernia, right, Constipation
Instructions: Groin hernias, Constipation, Adult (DC), Groin Strain ED
Prescriptions:
New
meloxicam 15 mg tablet
15 mg PO DAILY Qty: 14 0RF
No Action
ascorbic acid (vitamin C) [Vitamin C] 1,000 MG tablet
1,000 mg PO BID
Men's 50 Plus Multivitamin 1 EACH tablet
1 ea PO DAILY
loratadine 10 MG tablet
10 mg PO DAILY
vitamin E (dl, acetate) 400 UNITS capsule
1 cap PO DAILY Qty: 0 0RF
Rx Instructions:
resume in 7 days
Prostate Health 1 EACH tablet
1 ea PO DAILY Qty: 0 0RF
Rx Instructions:
resume in 7 days
famotidine 20 MG tablet
20 mg PO HS Qty: 30 0RF
latanoprost 0.005 % Drops
1 drp OPHTHALMIC (EYE) HS
Rx Instructions:
RIGHT EYE
omeprazole 20 mg Capsule,Delayed Release(Dr/Ec)
20 mg PO DAILY
aspirin 325 mg Tablet,Delayed Release (Dr/Ec)
325 mg PO DAILY 14 Days Qty: 14 0RF
Rx Instructions:
Follow up with Podiatry for further DVT prophylaxis dosing recommendations before completing
acetaminophen [Tylenol Extra Strength] 500 MG tablet
500 mg PO Q6H PRN (Reason: pain) Qty: 0 0RF
Rx Instructions:
500mg only if taking Hydrocodone
gabapentin 300 mg Capsule
300 mg PO TID 14 Days Qty: 42 0RF
ibuprofen 600 mg Tablet
600 mg PO Q6HPRN PRN (Reason: pain and swelling) 7 Days Qty: 28 0RF
oxycodone 5 mg Tablet
5 mg PO Q8HPRN PRN (Reason: severe pain) 7 Days Qty: 21 0RF
Referrals:
Reza Grant MD [Family Provider] - Keep scheduled appt
Interventions
Interventions:
*Risk Screen - Suicide Last Done: 04/23/24 23:34
*General Assessment Last Done: 04/23/24 19:49
*Neglect/Abuse Screening Last Done: 04/23/24 23:34
ED- Fall Risk Assessment Last Done: 04/23/24 23:35
*ED COVID-19 Vaccine History Last Done: 04/23/24 23:34
AS-Didoaz-Thytzygpto Assessment Last Done: 04/23/24 23:35
Discharge Date and Time
Print Language: VIET[place]ESE
[2024-04-23] MEDS: TORADOL 30 MG IV (23:31)
== END 2024-04-24 01:45 | disposition home or self-care (01) ==
LOC: EMR 19:46
PROVIDERS: Student in an Organized Health Care Education/Training Program; EMERGENCY PHYSICIAN Emergency Medicine; FAMILY PHYSICIAN Family Medicine
DX: R10.31 Right lower quadrant pain (principal); K40.90 Unilateral inguinal hernia, without obstruction or gangrene, not specified as recurrent; K59.00 Constipation, unspecified; K21.9 Gastro-esophageal reflux disease without esophagitis
CPT/HCPCS: 99284; 96374; 74177; 80053; 83690; 85025; Q9967

== ENCOUNTER 2024-06-01 10:20 | Emergency (ER) | payer OTHER, SELFPAY ==
[2024-06-01 10:28] VITALS: BP 143/86
--- NOTE | 2024-06-01 11:04 | ED.MUSCINJ ---
HPI-Injury
General
Chief Complaint: Fall
Source: patient
Exam Limitations: none
Time Seen by Provider: 06/01/24 10:56
Nursing documentation reviewed up to this point in time: agreed with
History of Present Illness-Injury
Initial Injury comments:
74-year-old male with no clinically significant past medical history states he was in his driveway yesterday, slipped on ice, fell impacting his right elbow and his arm went into his right ribs. He presents for pain in the elbow and pain in the
right mid to lower posterior ribs. He denies hitting his head. He denies neck pain. He denies abdominal pain. He states he feels more pain today than he did yesterday after the incident. Pain is 5/10 when he is resting and goes to 10/10 when he
stands or walks. He took Aleve with little relief.
Past History
Past History
ED Past Medical History: GERD
ED Past Surgical History: Orthopedic (Right total knee replacement; bilateral carpal tunnel release, left bicep repair, left hammertoe correction September 2023)
Social History
Tobacco: Non-smoker
Alcohol: None
Drug: None
Personal: Partner
Living: alone
Employment: Retired (drives a school bus)
Family History
Family History: Other (Noncontributory)
Review of Systems
Review of Systems
Allergies reviewed?: Yes
All Other Systems: ROS reviewed and negative except as documented in HPI and ROS
Constitutional: Denies fever
Respiratory: Denies trouble breathing
Cardiac: Denies chest pain or syncope
ABD/GI: Denies abdominal pain or nausea
Musculoskeletal: Reports other (pain right mid posterior ribs, right elbow); Denies neck pain
Skin: Reports no symptoms
Neurological: Reports no symptoms
Phy Exam
Physical Exam
Physical Exam:
GENERAL: No acute distress. A&Ox3.
CONSTITUTIONAL: Afebrile.
EYES: clear, conjunctivae normal
ENMT: moist mucus membranes
RESPIRATORY: Regular respirations, nonlabored, lungs clear.
CARDIOVASCULAR: Regular rate and rhythm, no murmurs, no rubs.
GI: Soft, nontender, normal BS
MUSCULOSKELETAL: No spinal bony tenderness. Tender to palpate right mid posterior lateral ribs. Right elbow is tender to palpate at the medial epicondyle. Full range of motion, distal neurovascular intact. Moves with ease. Well perfused.
SKIN: Warm, dry, pink
PSYCH: Normal mood and affect. Well kept, interactive and appropriate
NEUROLOGIC: Awake, alert and oriented. No focal neurological deficits
Injury Course
Orders/Labs/Results
Orders:
Orders
06/01/24 11:03
Elbow, 3 View, Right [CR Elbow - Right Min 3 Views] Urgent
Comment:
Reason For Exam: pain after fall
Ribs, Right 3 View W/PA Chest [CR Ribs-right 3 Vw W/pa Chest*] Urgent
Comment:
Reason For Exam: pain after fall
06/01/24 14:10
Incentive Spirometry [Rx Incentive Spirometry] [RESP] Urgent
Frequency: q1h while awake
# of times per hour: 10
MDM/Problems Addressed
MDM/Problems Addressed:
74-year-old male with no clinically significant past medical history states he was in his driveway yesterday, slipped on ice, fell impacting his right elbow and his arm went into his right ribs. He presents for pain in the elbow and pain in the
right mid to lower posterior ribs. He denies hitting his head. He denies neck pain. He denies abdominal pain. He states he feels more pain today than he did yesterday after the incident. Pain is 5/10 when he is resting and goes to 10/10 when he
stands or walks. He took Aleve with little relief.
*Critical Care Note
Total Time (30-74mins, 75-104mins- exclusive of procedures): Not Applicable
ED Attending Note
-
Portions of this chart may have been created with voice recognition software.� Occasional wrong word or��sound alike� substitutions may have occurred due to the inherent limitations of voice recognition software.
Discharge Plan
Departure
Patient Disposition: Home (Routine Discharge)
Date of Disposition: 06/01/24
Time of Disposition: 14:08
Patient with high blood pressure during this ER visit?: No
Condition: Good
Discharge Problem:
Fracture of rib of right side
Instructions: Rib Fracture
Prescriptions:
No Action
ascorbic acid (vitamin C) [Vitamin C] 1,000 MG tablet
1,000 mg PO BID
Men's 50 Plus Multivitamin 1 EACH tablet
1 ea PO DAILY
loratadine 10 MG tablet
10 mg PO DAILY
vitamin E (dl, acetate) 400 UNITS capsule
1 cap PO DAILY Qty: 0 0RF
Rx Instructions:
resume in 7 days
Prostate Health 1 EACH tablet
1 ea PO DAILY Qty: 0 0RF
Rx Instructions:
resume in 7 days
famotidine 20 MG tablet
20 mg PO HS Qty: 30 0RF
latanoprost 0.005 % Drops
1 drp OPHTHALMIC (EYE) HS
Rx Instructions:
RIGHT EYE
omeprazole 20 mg Capsule,Delayed Release(Dr/Ec)
20 mg PO DAILY
aspirin 325 mg Tablet,Delayed Release (Dr/Ec)
325 mg PO DAILY 14 Days Qty: 14 0RF
Rx Instructions:
Follow up with Podiatry for further DVT prophylaxis dosing recommendations before completing
acetaminophen [Tylenol Extra Strength] 500 MG tablet
500 mg PO Q6H PRN (Reason: pain) Qty: 0 0RF
Rx Instructions:
500mg only if taking Hydrocodone
gabapentin 300 mg Capsule
300 mg PO TID 14 Days Qty: 42 0RF
ibuprofen 600 mg Tablet
600 mg PO Q6HPRN PRN (Reason: pain and swelling) 7 Days Qty: 28 0RF
oxycodone 5 mg Tablet
5 mg PO Q8HPRN PRN (Reason: severe pain) 7 Days Qty: 21 0RF
meloxicam 15 mg tablet
15 mg PO DAILY Qty: 14 0RF
Referrals:
Reza Grant MD [Family Provider] - As needed
Stand Alone Forms: Return to Work
Activity Restrictions/Additional Instructions:
As we discussed, wear the rib belt if it helps with the pain.
Tylenol 1000 mg up to 3 times in a 24-hour period as needed for pain
You may take ibuprofen 600 mg, with food, every 8 hours if the Tylenol is not helping, but not for more than 3 days. You may use the Tylenol for a longer period of time
10 deep breath on the Incentive Spirometer every hour while awake for the next 10 days
Interventions
Interventions:
*Risk Screen - Suicide Last Done: 06/01/24 10:28
*General Assessment Last Done: 06/01/24 10:28
*Neglect/Abuse Screening Last Done: 06/01/24 10:28
ED- Fall Risk Assessment Last Done: 06/01/24 10:20
*Nursing Disposition Last Done: 06/01/24 14:31
ED-Musculoskeletal Assessment Last Done: 06/01/24 10:20
ED- Neurological Assessment Last Done: 06/01/24 10:20
Discharge Date and Time
Discharge Date/Time: 06/01/24 14:31
Print Language: TURKMEN
[2024-06-01 14:27] VITALS: BP 138/82
== END 2024-06-01 14:31 | disposition home or self-care (01) ==
LOC: EMR 10:20
PROVIDERS: EMERGENCY PHYSICIAN Emergency Medicine; FAMILY PHYSICIAN Family Medicine
DX: S22.31XA Fracture of one rib, right side, initial encounter for closed fracture (principal); W19.XXXA Unspecified fall, initial encounter; K21.9 Gastro-esophageal reflux disease without esophagitis
CPT/HCPCS: 99283; 71101; 73080

== ENCOUNTER 2024-09-29 06:18 | Day surgery (SDC) | payer OTHER, SELFPAY ==
[2024-09-22 08:52] LABS: Hemoglobin 14.2 g/dL (13.0-18.0); Mean Corp Hgb Conc. 33.8 g/dL (33.0-37.0); Mean Corpuscular Hgb 27.6 pg (27.0-31.0); Mean Corpuscular Volume 81.6 fL (80.0-94.0); Mean Platelet Volume 9.8 fL (7.4-10.4); Platelet Count 290 10^3/uL (130-400); Red Blood Cell Count 5.15 10^6/uL (4.70-6.10); Red Cell Dist. Width 13.2 % (11.5-14.5); White Blood Cell Count 4.9 10^3/uL (4.8-10.8)
[2024-09-22 09:22] LABS: Blood Urea Nitrogen 17 mg/dl (9-20); Calcium 9.5 mg/dl (8.4-10.2); Carbon Dioxide 26 mmol/L (22-30); Chloride 109 mmol/L (98-107); Glucose 104 mg/dl (70-99); Potassium 4.3 mmol/L (3.5-5.1); Sodium 142 mmol/L (135-145); eGFR > 60.00
[2024-09-22 13:44] VITALS: BMI 31.2
[2024-09-29] VITALS (9 sets, daily range): BP systolic 122–137; BP diastolic 72–95; BMI 31.2
--- NOTE | 2024-09-29 07:07 | HP.FOC2 ---
Focused History & Physical
Chief Complaint
HPI:
Chief Complaint: Right inguinal hernia
HPI / Indication for Planned Procedure: Patient is a 74-year-old male recently seen in outpatient surgical evaluation secondary to right inguinal pain prompting emergency department evaluation identifying a right inguinal hernia with subsequent
surgical referral. His acute pain is subsided but he still has some discomfort in the region and awareness of the right inguinal hernia being present. Outpatient evaluation confirmed the presence of a reducible right inguinal hernia. He presents
today for scheduled operative correction.
Relevant Past Medical History: Other (Environmental allergies, previous history of Lyme disease, GERD)
Relevant Social History: Negative
Relevant Family History: Negative
Relevant Past Surgical History: Positive for (Patella rupture with repair, right biceps tendon rupture with repair, septic osteomyelitis right shoulder, tonsils, carpal tunnel, right total knee, foot surgery, right hand trigger finger release)
Review of Systems
Review of Pertinent Systems: All Systems Negative
Medication
See Medication form for detailed medications: Yes
Medication List (including Herbals & OTC):
ascorbic acid (vitamin C) 1,000 mg tablet (Vitamin C) 1,000 mg PO BID Supplement 09/19/18
gmhmfatolcfd-zar-uwdvl acid-vit K-lycop 400 mcg-20 mcg-370 mcg tablet (Men's 50 Plus Multivitamin) 1 ea PO DAILY Supplement 09/19/18
loratadine 10 mg tablet 10 mg PO DAILY Allergies 09/01/21
saw palm 160 mg-vit E 100 unit-selen 100 syi-ceva-mkpsho-pygeum tablet (Prostate Health) 1 ea PO DAILY prostate ##0 10/04/21
vitamin E (dl, acetate) 180 mg (400 unit) capsule 1 cap PO DAILY Supplement ##0 10/04/21
latanoprost 0.005 % eye drops 1 drp RIGHT EYE HS 10/03/23
omeprazole 20 mg capsule,delayed release 20 mg PO DAILY 10/08/23
famotidine 20 mg tablet 20 mg PO QPM 09/22/24
Medications Reviewed: Yes
Allergies and Reactions
Patient has Allergies: Yes
Noted Allergies and Reactions:
Allergy/AdvReac Type Severity Reaction Status Date / Time
adhesive tape Allergy Rash, Verified 09/22/24 13:41
itching,
blisters
apple Allergy fruits in Verified 09/22/24 13:41
raw form
only,
itchy/tight
throat
ceftriaxone (From Rocephin) Allergy Rash Verified 09/22/24 13:41
latex Allergy Rash Verified 09/22/24 13:41
nut - unspecified Allergy Anaphylaxis Verified 09/22/24 13:41
Penicillins Allergy Rash - Verified 09/22/24 13:41
tested
positive
on skin
test
pollen extracts Allergy Hayfever Verified 09/22/24 13:41
shellfish derived Allergy Vomiting Verified 09/22/24 13:41
Pertinent Physical Exam
All Other Systems: Negative
Head/Neck: Normal
Lungs: Normal
Heart: Normal
Abdomen: Other (Reducible right inguinal hernia)
Extremities: Normal
Neurological: Normal
Diagnosis / Assessment
74-year-old male presenting for scheduled operative correction symptomatic right inguinal hernia
Plan / Procedure
Robotic assisted laparoscopic repair right inguinal hernia with mesh
Anesthesia/Sedation to be done by Anesthesia Provider: Yes
[2024-09-29] MEDS: TYLENOL 1000 MG PO (10:26)
--- NOTE | 2024-09-29 10:30 | W.SUR.PREOP ---
Pre-Operative Surgical Note
-
I have examined this patient prior to the performance of the scheduled procedure.
The patient's condition is unchanged from the time of the current History and
Physical and the patient is able to undergo the scheduled procedure.
[2024-09-29] MEDS: VANCOCIN 530 MG IV (10:40)
[2024-09-29] MEDS: NORMOSOL-R/PLASMALYTE-A 1000 IV (10:41)
--- NOTE | 2024-09-29 12:20 | W.IMMPOSTOP ---
Addendum entered and electronically signed by Dejan Montesinos MD 09/29/24 12:29:
#[id number]
Original Note:
Surgical Immed Post Op Note
-
Primary Surgeon: Dejan Montesinos MD
Assisting Surgeon: Destiny Burgos PA-C
Pre-op Diagnosis: Right inguinal hernia
Post-op Diagnosis: Right inguinal hernia, indirect
Procedure Performed: Robotic assisted laparoscopic repair right inguinal hernia with mesh; 3D max extra-large mid weight mesh
Anesthesia Type: GETA +0.25% Marcaine
Specimen / Cultures: None
Estimated Blood Loss: 6 mL
Complications: None
Operative Findings: Right indirect inguinal hernia, 3 fingerbreadth defect. Direct and femoral space normal. No significant lipoma of spermatic cord. 3D max extra-large mid weight mesh repair secured to Skip's ligament with 2-0 Vicryl stitch x
2.
The assistance of Destiny Burgos PA-C was required due to the complexity of the procedure. During the procedure Destiny Burgos PA-C assisted with port placement, robotic instrumentation and suture material exchanges, and closure of the surgical incision
sites. I was present for the entirety of the operative procedure.
== END 2024-09-29 14:28 | disposition home or self-care (01) ==
LOC: SDS 06:18
PROVIDERS: ATTENDING PHYSICIAN Surgery; FAMILY PHYSICIAN Physician Assistant
DX: K40.90 Unilateral inguinal hernia, without obstruction or gangrene, not specified as recurrent (principal)
CPT/HCPCS: 49650; 80048; 85027; 93005; C1781

== ENCOUNTER 2024-10-24 06:08 | Day surgery (SDC) | payer OTHER, SELFPAY ==
[2024-10-24] VITALS (8 sets, daily range): BP systolic 107–135; BP diastolic 61–88; BMI 28.7
[2024-10-24] MEDS: CELEBREX 200 MG PO (07:10)
[2024-10-24] MEDS: TYLENOL 1000 MG PO (07:10)
[2024-10-24] MEDS: NORMOSOL-R/PLASMALYTE-A 1000 IV (07:14)
== END 2024-10-24 11:20 | disposition home or self-care (01) ==
LOC: SDS 06:08
PROVIDERS: ATTENDING PHYSICIAN Specialist
DX: S46.011A Strain of muscle(s) and tendon(s) of the rotator cuff of right shoulder, initial encounter (principal); X58.XXXA Exposure to other specified factors, initial encounter; M75.41 Impingement syndrome of right shoulder
CPT/HCPCS: 29827; 29826; C1713

== ENCOUNTER 2024-12-11 11:05 | Outpatient (RCR) | payer OTHER, SELFPAY | END 2024-12-11 23:59 | disposition home or self-care (01) | LOC: RPT 11:05 | PROVIDERS: ATTENDING PHYSICIAN Physician Assistant Surgical; FAMILY PHYSICIAN Family Medicine | DX: Z47.89 Encounter for other orthopedic aftercare (principal); Z73.6 Limitation of activities due to disability; M25.511 Pain in right shoulder; M62.81 Muscle weakness (generalized) | CPT/HCPCS: 97010; 97014; 97110; 97140; 97162 ==

== ENCOUNTER 2024-12-24 06:29 | Day surgery (SDC) | payer OTHER, SELFPAY | END 2024-12-24 14:02 | disposition home or self-care (01) | LOC: GI 06:29 | PROVIDERS: ATTENDING PHYSICIAN Internal Medicine | DX: K57.30 Diverticulosis of large intestine without perforation or abscess without bleeding (principal); K64.9 Unspecified hemorrhoids; Z80.0 Family history of malignant neoplasm of digestive organs | CPT/HCPCS: 45378 ==

== ENCOUNTER 2025-01-12 11:30 | Outpatient (RCR) | payer OTHER, SELFPAY | END 2025-01-12 23:59 | disposition home or self-care (01) | LOC: RPT 11:30 | PROVIDERS: ATTENDING PHYSICIAN Physician Assistant Surgical; FAMILY PHYSICIAN Family Medicine | DX: Z47.89 Encounter for other orthopedic aftercare (principal); M25.511 Pain in right shoulder; M62.81 Muscle weakness (generalized); Z73.6 Limitation of activities due to disability | CPT/HCPCS: 97010; 97014; 97110; 97140 ==

== ENCOUNTER 2025-02-12 10:53 | Outpatient (RCR) | payer OTHER, SELFPAY | END 2025-02-12 23:59 | disposition home or self-care (01) | LOC: RPT 10:53 | PROVIDERS: ATTENDING PHYSICIAN Physician Assistant Surgical; FAMILY PHYSICIAN Family Medicine | DX: Z47.89 Encounter for other orthopedic aftercare (principal); M25.511 Pain in right shoulder; M62.81 Muscle weakness (generalized); Z73.6 Limitation of activities due to disability | CPT/HCPCS: 97010; 97110 ==

== ENCOUNTER 2025-03-09 09:27 | Outpatient (RCR) | payer OTHER, SELFPAY | END 2025-03-09 23:59 | disposition home or self-care (01) | LOC: RPT 09:27 | PROVIDERS: ATTENDING PHYSICIAN Physician Assistant Surgical; FAMILY PHYSICIAN Family Medicine | DX: Z47.89 Encounter for other orthopedic aftercare (principal); M25.511 Pain in right shoulder; M62.81 Muscle weakness (generalized); Z73.6 Limitation of activities due to disability | CPT/HCPCS: 97010; 97110 ==

== ENCOUNTER 2025-04-08 06:49 | Outpatient (RCR) | payer OTHER, SELFPAY | END 2025-04-08 23:59 | disposition home or self-care (01) | LOC: RPT 06:49 | PROVIDERS: ATTENDING PHYSICIAN Physician Assistant Surgical; FAMILY PHYSICIAN Family Medicine | DX: Z47.89 Encounter for other orthopedic aftercare (principal); M25.511 Pain in right shoulder; Z73.6 Limitation of activities due to disability; M62.81 Muscle weakness (generalized) | CPT/HCPCS: 97010; 97110 ==